=== PATIENT | female | born 1950 | race Caucasian/White ===

== ENCOUNTER 2016-07-26 09:40 | Outpatient (CLI) | payer MEDICARE, OTHER | END 2016-07-26 09:41 | DX: R31.9 Hematuria, unspecified (principal) ==

== ENCOUNTER 2017-09-03 08:00 | Outpatient (CLI) | payer MEDICARE, OTHER ==
[2017-09-03 19:00] LABS: BILIRUBIN,URINE NEGATIVE (NEGATIVE); GLUCOSE, URINE (UA) NEGATIVE (NEGATIVE); KETONES,URINE (UA) NEGATIVE (NEGATIVE); LEUKOCYTE ESTERASE, URINE NEGATIVE (NEGATIVE); NITRITE,URINE NEGATIVE (NEGATIVE); OCCULT BLOOD,URINE NEGATIVE (NEGATIVE); PROTEIN,URINE NEGATIVE (NEGATIVE); UROBILINOGEN,URINE 0.2 (NORMAL) E.U./dL (NORMAL)
[2017-09-03 19:01] LABS: CLARITY,URINE CLEAR (CLEAR)
[2017-09-03 19:11] LABS: BACTERIA,URINE None Seen /HPF (None Seen); RBC,URINE None Seen /HPF (0-5); SQUAMOUS EPITHELIAL CELL,UR MOD Squamous (<= Few)
== END 2017-09-03 08:01 ==
LOC: LAB.WCP 08:00
PROVIDERS: ATTEND Physician Assistant Medical
DX: R31.9 Hematuria, unspecified (principal)
CPT/HCPCS: 81001; 87086

== ENCOUNTER 2017-09-04 08:00 | Outpatient (CLI) | payer MEDICARE, OTHER ==
[2017-09-04 13:01] LABS: BASOPHILS % (AUTO) 0.7 %; EOSINOPHILS # (AUTO) 0.1 10^3/uL (0.0-0.7); EOSINOPHILS % (AUTO) 2.6 %; HGB - HEMOGLOBIN 12.9 g/dL (12.0-16.0); LYMPHOCYTES # (AUTO) 1.3 10^3/uL (1.5-3.5); LYMPHOCYTES % (AUTO) 33.3 %; MEAN CORPUSCULAR HEMOGLOBIN 33.7 pg (27.0-31.0); MEAN CORPUSCULAR HGB CONC 33.9 g/dL (32.0-36.0); MEAN CORPUSCULAR VOLUME 99.3 fL (81.0-99.0); MEAN PLATELET VOLUME 8.4 fL (7.9-10.8); MONOCYTES # (AUTO) 0.4 10^3/uL (0.0-1.0); MONOCYTES % (AUTO) 9.3 %; NEUTROPHILS # (AUTO) 2.2 10^3/uL (1.5-6.6); NEUTROPHILS % (AUTO) 54.1 %; PLT - PLATELET COUNT 265 10^3/uL (130-450); RED BLOOD COUNT 3.84 10^6/uL (4.20-5.40)
[2017-09-04 13:07] LABS: ALBUMIN 4.2 g/dL (3.2-5.5); ALBUMIN/GLOBULIN RATIO 1.5 (1.0-2.2); ALKALINE PHOSPHATASE 42 IU/L (42-121); ALT ALANINE AMINOTRANSFERASE 18 IU/L (10-60); AST ASPARTATE AMINOTRANSFERASE 22 IU/L (10-42); BILIRUBIN,TOTAL 0.9 mg/dL (0.2-1.0); BUN - BLOOD UREA NITROGEN 17 mg/dL (6-20); CALCIUM 9.1 mg/dL (8.5-10.3); CARBON DIOXIDE - CO2 28 mmol/L (21-32); CHLORIDE 105 mmol/L (101-111); CHOL/HDL RATIO 3.1 (<4.4); CHOLESTEROL 224 mg/dL; CREATININE 0.7 mg/dL (0.4-1.0); GFR - MDRD 83 (>89); GLUCOSE 96 mg/dL (70-100); HDL CHOLESTEROL 72 mg/dL; LDL CHOLESTEROL,CALCULATED 141 mg/dL; MAGNESIUM 2.1 mg/dL (1.7-2.8); PHOSPHORUS 3.2 mg/dL (2.5-4.6); SODIUM 137 mmol/L (135-145); VLDL CHOLESTEROL 11 mg/dL
== END 2017-09-04 08:01 ==
LOC: LAB.WCP 08:00
PROVIDERS: ATTEND Physician Assistant Medical
DX: R07.9 Chest pain, unspecified (principal)
CPT/HCPCS: 36415; 80053; 80061; 83721; 83735; 84100; 85025

== ENCOUNTER 2017-10-17 09:55 | Outpatient (CLI) | payer MEDICARE, OTHER ==
--- NOTE | 2017-10-18 14:59 | Mammography Report ---
Procedure Date: 10/17/2017 Accession Number: [id number] / [id number] Procedure: MARKUS - Screening Mammo Dig Bilat CPT Code: FULL RESULT: EXAM: Screening Mammo Dig Bilat DATE: 10/17/2017 10:16 AM CLINICAL HISTORY: 66-year-old for screening TECHNIQUE: Bilateral CC and MLO views were obtained. COMPARISON: 05/16/2015, 06/04/2013, 08/13/2011 FINDINGS: The breasts demonstrate scattered fibroglandular densities bilaterally. No suspicious masses, clustered microcalcifications, or regions of architectural distortion are identified. IMPRESSION: Negative examination RECOMMENDATION: Routine annual screening unless otherwise clinically indicated. BIRADS CATEGORY 1: Negative STANDARD QUALIFYING STATEMENTS: 1. This examination was reviewed with the aid of Computer-Aided Detection (CAD). 2. A negative or benign imaging report should not delay biopsy if clinically suspicious findings are present. Consider surgical consultation if warrented. More than 5% of cancers are not identified by imaging. 3. Dense breasts may obscure an underlying neoplasm.
== END 2017-10-17 09:56 | disposition home or self-care (01) ==
LOC: DI 09:55
PROVIDERS: ATTEND Physician Assistant Medical
DX: Z12.31 Encounter for screening mammogram for malignant neoplasm of breast (principal)
CPT/HCPCS: 77067

== ENCOUNTER 2018-01-13 15:16 | Outpatient (CLI) | payer MEDICARE, OTHER ==
--- NOTE | 2018-01-14 18:46 | CARDIAC PROCEDURE NOTE ---
DATE OF SERVICE: 10/13/2017 Physician: Radha Bender MD INDICATION: Chest pain. CARDIAC RISK FACTORS 1. Postmenopausal status. 2. Father with early history of heart disease. After signing informed consent, the patient completed a Lucas treadmill stress test. The patient exe rcised for 4 minutes and 5 seconds. She reached a peak heart rate of 136 (89% predicted maximum pred icted heart rate for age), 5.5 METS. The patient had mild shortness of breath. No chest pain. Resting heart rate 77, peak heart rate 135. Resting blood pressure 138/78, peak blood pressure 170/7 0. Resting EKG: Normal sinus rhythm, right bundle branch block, left anterior fascicular block, possibl e left atrial enlargement. Peak EKG: New T-wave flattening in leads 3 and aVF. IMPRESSION 1. Fair exercise tolerance. 2. Abnormal resting EKG. 3. Borderline abnormal EKG changes, which suggest ischemia, at an adequate workload on a treadmill s tress test. RECOMMENDATIONS: Repeat stress testing with imaging (nuclear stress test or stress echo). cc: Chacha Recinos PA-C TD: 01/14/2018 17:46
== END 2018-01-13 15:17 | disposition home or self-care (01) ==
LOC: DI 15:16
PROVIDERS: ATTEND Physician Assistant Medical
DX: R07.9 Chest pain, unspecified (principal); R94.31 Abnormal electrocardiogram [ECG] [EKG]; Z82.49 Family history of ischemic heart disease and other diseases of the circulatory system
CPT/HCPCS: 93017

== ENCOUNTER 2018-03-06 08:24 | Day surgery (SDC) | payer MEDICARE, OTHER ==
[2018-03-06] MEDS ORDERED: LACTATED RINGERS 1,000 ML IV ONE (08:50)
[2018-03-06] MEDS ORDERED: fentaNYL 250 MCG/5 ML VIAL IVP ONE (11:07)
[2018-03-06] MEDS ORDERED: MIDAZOLAM 2 MG/2 ML VIAL IVP ONE (11:07)
[2018-03-06 11:25] VITALS: BP 114/72
--- NOTE | 2018-03-06 11:43 | OPERATIVE REPORT ---
DATE OF SERVICE: 03/06/2018 Physician: Addy Olson MD PREOPERATIVE DIAGNOSIS: Screening colonoscopy. POSTOPERATIVE DIAGNOSES: Polyps in the sigmoid, and rectum with extensive diverticulosis. PROCEDURE: Colonoscopy. INDICATIONS FOR PROCEDURE: The patient is a 59-year-old woman presenting for a screening colonoscopy, last one was over 10 years ago. PROCEDURE IN DETAIL: The risks and benefits were explained to the patient and she was taken to the operating room, given sedation, and a timeout was performed. Everyone in the room agreed to the procedure. We begun by inserting a well-lubricated colonoscope into the rectum. We advanced this through a very tortuous colon full of diverticula, eventually reaching the cecum and identifying the appendiceal orifice. The scope was then slowly withdrawn. The prep was good. All the surfaces of the colon where examined. One large polyp, about 2 cm in size, was seen at the distal sigmoid. This was taken out in 2 pieces using the hot snare. An additional smaller subcentimeter polyp was seen in the rectum. This was also removed with hot snare. The scope was then retroflexed at the anal verge. No other abnormalities were seen. It was completely withdrawn and procedure terminated. The patient tolerated the procedure well. She was taken to recovery in stable condition. SPECIMENS: Two polyps. COMPLICATIONS: None. PLAN: This patient is to go home later today and receive her pathology results over the phone. TD: 03/06/2018 11:19 [place]ACY
== END 2018-03-06 08:25 | disposition home or self-care (01) ==
LOC: SDS 08:24
PROVIDERS: ATTEND Surgery
PROC: 0DBN8ZZ Excision of Sigmoid Colon, Via Natural or Artificial Opening Endoscopic (ICD-10-PCS; 2018-03-06)
PROC: 0DBP8ZZ Excision of Rectum, Via Natural or Artificial Opening Endoscopic (ICD-10-PCS; principal; 2018-03-06 09:45)
DX: R15.9 Full incontinence of feces (principal); D12.5 Benign neoplasm of sigmoid colon; K62.1 Rectal polyp; K57.30 Diverticulosis of large intestine without perforation or abscess without bleeding
CPT/HCPCS: 45385; J3010; J7120

== ENCOUNTER 2018-09-03 08:44 | Outpatient (CLI) | payer MEDICARE, OTHER ==
--- NOTE | 2018-09-03 12:27 | CARDIAC PROCEDURE NOTE ---
DATE OF SERVICE: 09/03/2018 Physician: Radha Bender MD, [facility] INDICATIONS: Chest pain. PROCEDURE: Treadmill exercise stress test with nuclear myocardial perfusion imaging. After signing informed consent, the patient exercised on a Lucas protocol treadmill stress test and had nuclear myocardial perfusion imaging at rest and after exercise. Resting heart rate: 96. Peak heart rate: 154 (101% predicted maximum heart rate for age). Resting blood pressure: 149/100. Peak blood pressure: 165/88. Patient exercised for 4 minutes 23 seconds on a Lucas protocol treadmill stress test. The patient had an accelerated heart rate response to exercise. Blood pressure was unable to be measured because of automatic blood pressure cuff machine failure during the exercise portion. The peak blood pressure was obtained immediately after stopping the treadmill. Patient reported 1/10 chest tightness in the upper mid chest at rest, pre- exercise, and she has "had it all day." With exertion, the chest discomfort, increased to a 2/10 in stage II however, it decreased back to 1/10 in the final stage and was 1/10 in recovery. The patient had moderate shortness of breath at peak exercise. Oxygen saturation was 97% on room air, measured in recovery after 45 seconds. EKG at rest: Normal sinus rhythm, right bundle-branch block, left anterior fascicular block, left atrial enlargement. EKG at peak: New right axis deviation, possibly flattened T waves in leads III and aVF. Also the P wave becomes more peaked, suggesting P pulmonale (right atrial enlargement) SUMMARY 1. Fair exercise tolerance. 2. Abnormal resting EKG. 3. Rightward axis and P pulmonale with exertion are noted and RBBB at rest suggests cor pulmonale. 4. Borderline changes for ischemia are noted at peak. 5. Nuclear images reported separately. cc: Chacha Recinos PA-C TD: 09/03/2018 12:13 [facility]ENTERPaula
--- NOTE | 2018-09-04 11:18 | Nuclear Medicine Report ---
Reason: CHEST PAIN Procedure Date: 09/03/2018 Accession Number: [id number] / [id number] Procedure: NM - Myocardial Perfusion STR/RST CPT Code: FULL RESULT: EXAM: SINGLE-ISOTOPE PHARMACOLOGICAL STRESS TEST WITH REGADENOSON. SINGLE-ISOTOPE AND ONE-DAY REST/STRESS MYOCARDIAL PERFUSION SCANS WITH TOMOGRAPHIC IMAGING, QUANTITATIVE ANALYSIS, WALL MOTION ANALYSIS AND CALCULATION OF EJECTION FRACTION. EXAM DATE: 09/03/2018 04:24 PM. CLINICAL HISTORY: CHEST PAIN. COMPARISON: None. TECHNIQUE: After the intravenous administration of 11.0 mCi of Tc-99m sestamibi, a rest myocardial perfusion scan was done with tomography. Motion correction was applied when appropriate. After an appropriate delay, pharmacological stress was performed with the infusion of 0.4 mg regadenoson per protocol. According to protocol, 41.9 mCi of Tc-99m sestamibi was injected for stress myocardial perfusion scan. Motion correction was applied when appropriate. Gated tomographic images were obtained for wall motion analysis and computation of left ventricular ejection fraction. FINDINGS: Perfusion images: Left ventricular chamber size appears normal at rest and unchanged at stress. No convincing fixed perfusion deficits. No convincing reversible perfusion deficits. SSS 5, SRS 3, SDS 2. Gated images: No convincing focal wall motion abnormality. Calculated left ventricular EDV 59 mL, ESV 8 mL. The left ventricular ejection fraction is estimated at 86% (normal IMPRESSION: 1. No convincing reversible perfusion deficits to indicate stress-induced ischemia. 2. No convincing fixed perfusion deficits. 3. Left ventricular ejection fraction of 86% (normal Please correlate findings with stress ECG tracings and procedure notes. [facility] ADDENDUM: 09/04/18 11:19 Corrected TECHNIQUE: TECHNIQUE: A rest myocardial perfusion scan was done with tomography after the intravenous administration of 11.0 mCi Tc-99m sestamibi. After an appropriate delay, a treadmill exercise stress was performed according to department protocol. The patient exercised for 4 minutes and 23 seconds. The maximum heart rate was 154 bpm, which was 101% of the maximum predicted heart rate of 152 bpm. At approximately peak heart rate, 41.9 mCi of Tc-99m sestamibi was injected for stress myocardial perfusion scan. Motion correction was applied when appropriate. Gated tomographic images were obtained for wall motion analysis and computation of left ventricular ejection fraction.
== END 2018-09-03 08:45 | disposition home or self-care (01) ==
LOC: DI 08:44
PROVIDERS: ATTEND Physician Assistant Medical
DX: R07.9 Chest pain, unspecified (principal); R94.31 Abnormal electrocardiogram [ECG] [EKG]; I45.10 Unspecified right bundle-branch block
CPT/HCPCS: 78452; 93017; A9500

== ENCOUNTER 2018-11-18 08:00 | Outpatient (CLI) | payer MEDICARE, OTHER | END 2018-11-18 23:59 | disposition home or self-care (01) | LOC: LAB.R 08:00 | PROVIDERS: ATTEND Physician Assistant Medical | DX: N39.0 Urinary tract infection, site not specified (principal) | CPT/HCPCS: 87086 ==

== ENCOUNTER 2018-11-18 08:00 | Outpatient (CLI) | payer MEDICARE, OTHER ==
[2018-11-18 12:36] LABS: MEAN CORPUSCULAR HEMOGLOBIN 34.1 pg (27.0-31.0); MEAN CORPUSCULAR HGB CONC 33.2 g/dL (32.0-36.0); MEAN CORPUSCULAR VOLUME 102.6 fL (81.0-99.0); MEAN PLATELET VOLUME 10.2 fL (7.9-10.8); RED BLOOD COUNT 3.81 10^6/uL (4.20-5.40); RED CELL DISTRIBUTION WIDTH 12.7 % (12.0-15.0); WHITE BLOOD COUNT 5.6 x10^3/uL (4.8-10.8)
[2018-11-18 13:15] LABS: URIC ACID 4.5 mg/dL (2.6-7.2)
[2018-11-18 13:16] LABS: CRP - C-REACTIVE PROTEIN < 1.0 mg/dL (0-1.0)
[2018-11-18 14:52] LABS: RHEUMATOID FACTOR NEGATIVE (Negative)
[2018-11-20 19:57] LABS: ANA SCREEN POSITIVE (NEGATIVE)
== END 2018-11-18 23:59 | disposition home or self-care (01) ==
LOC: LAB.WCP 08:00
PROVIDERS: ATTEND Physician Assistant Medical
DX: M25.50 Pain in unspecified joint (principal); N39.0 Urinary tract infection, site not specified
CPT/HCPCS: 36415; 84550; 85027; 85651; 86038; 86140; 86430; 87086